=== PATIENT | male | born 1960 | race Caucasian/White ===

== ENCOUNTER 2021-02-16 11:52 | Emergency (ER) | payer OTHER ==
[~2021-02-16 11:52] MED LIST: AUGMENTIN 875-1 EACH PO; AZITHROMYCIN250 MG PO; BACLOFEN 10MG T10 MG PO; BACTRIM DS TAB1 EACH PO; CLARITIN10 MG PO; DALIRESP500 MCG PO; DUONEB 2.5-0.5M1 AMP INH; DUONEB 2.5-0.5M1 AMP NEB; GABAPENTIN600 MG PO; LEVAQUIN750 MG PO; LEXAPRO 10MG TA10 MG PO; NEBULIZER UNIT NEB; NEURONTIN300 MG PO; NEXIUM40 MG PO; NICOTINE PATCH1 EACH TOP; NORCO 5/3251 EACH PO; PERCOCET 5-3251 EACH PO; PREDNISONE 20MG20 MG PO; PROAIR HFA8.5 GM INH; PROTONIX 40MG T40 MG PO; ROBAXIN750 MG PO; SINGULAIR10 MG PO; SPIRIVA 18MCG18 MCG INH; SYMBICORT 80-10.2 GM INH; ULTRAM50 MG PO; VENTOLIN (2.5 MG/3 M INH; VENTOLIN HFA IN18 GM INH; VERAPAMIL ER180 M1 PO; VERAPAMIL ER180 MG PO; VIBRAMYCIN100 MG PO; WELLBUTRIN SR150 MG PO; ZPAK PO; ZYVOX600 MG PO
[2021-02-16 17:19] LABS: EOSINOPHIL 1.2 % (0-5); HCT 46.1 % (42.0-52.0); HGB 14.9 g/dl (13.2-18.0); LYMPHOCYTE 22.8 % (15-48); MCH 29.2 pg (25.0-31.0); MCHC 32.3 g/dL (32.0-36.0); MCV 90.2 fL (78.0-100.0); MONOCYTE 9.4 % (0-12); MPV 9.5 fL (6.0-9.5); NEUTROPHIL 65.3 % (41-80); NRBC 0; PLT 342 K/uL (150-400); RBC 5.11 M/uL (4.70-6.00); RDW 14.4 % (11.5-14.0); WBC 7.2 K/uL (4.0-10.5)
[2021-02-16 17:34] LABS: BILIRUBIN NEGATIVE (NEGATIVE); BLOOD NEGATIVE Ery/uL (NEGATIVE); CLARITY CLEAR (CLEAR); COLOR YELLOW (YELLOW); GLUCOSE (U) NORMAL (NORMAL); LEUKOCYTES NEGATIVE Leu/uL (NEGATIVE); NITRITE NEGATIVE (NEGATIVE); PROTEIN NEGATIVE (NEGATIVE); SPECIFIC GRAVITY >=1.030 (1.001-1.030); UROBILINOGEN 0.2 mg/dL (0.2-1.0); pH 5.5 (5.0-9.0)
[2021-02-16 17:39] LABS: BUN/CREAT RATIO (CALC) 15.6 RATIO; CREATININE 0.96 mg/dL (0.67-1.17); POTASSIUM 4.4 mmol/L (3.5-5.1)
[2021-02-16] MEDS ORDERED: BENTYL10 MG PO (20:53)
== END 2021-02-16 21:24 | disposition home or self-care (01) ==
LOC: FER 11:52
PROVIDERS: Nurse Practitioner Family
DX: K59.00 Constipation, unspecified (principal); J44.9 Chronic obstructive pulmonary disease, unspecified
CPT/HCPCS: 36415; 80048; 81003; 85025; 94640; 94664; J1885; J2270; J2405; Q9967

== ENCOUNTER 2021-02-21 11:28 | Emergency (ER) | payer OTHER ==
[~2021-02-21 11:28] MED LIST changes: +BENTYL10 MG PO
[2021-02-21 13:41] LABS: BASOPHIL 0.6 % (0-2); EOSINOPHIL 1.6 % (0-5); HCT 43.3 % (42.0-52.0); HGB 14.5 g/dl (13.2-18.0); LYMPHOCYTE 30.8 % (15-48); MCH 29.7 pg (25.0-31.0); MCHC 33.5 g/dL (32.0-36.0); MCV 88.7 fL (78.0-100.0); MONOCYTE 11.9 % (0-12); MPV 9.3 fL (6.0-9.5); NEUTROPHIL 54.8 % (41-80); NRBC 0; PLT 364 K/uL (150-400); RBC 4.88 M/uL (4.70-6.00); RDW 14.6 % (11.5-14.0); WBC 6.9 K/uL (4.0-10.5)
[2021-02-21 14:12] LABS: ALBUMIN 3.9 g/dL (3.4-5.0); ALKALINE PHOSHATASE 76 U/L (46-116); ALT 34 U/L (16-63); AST 22 U/L (15-37); BILIRUBIN - TOTAL 0.5 mg/dL (0.2-1.0); BUN 10 mg/dL (7-18); BUN/CREAT RATIO (CALC) 9.5 RATIO; C-REACTIVE PROTEIN < 0.20 mg/dL (<=0.90); CHLORIDE 106 mmol/L (98-107); CO2 (BICARBONATE) 22 mmol/L (21-32); CREATININE 1.05 mg/dL (0.67-1.17); GLUCOSE 87 mg/dL (74-106); LIPASE 116 U/L (73-393); POTASSIUM 3.9 mmol/L (3.5-5.1); TOTAL PROTEIN 6.9 g/dL (6.4-8.2)
[2021-02-21 14:29] LABS: BILIRUBIN NEGATIVE (NEGATIVE); BLOOD NEGATIVE Ery/uL (NEGATIVE); CLARITY CLEAR (CLEAR); COLOR YELLOW (YELLOW); GLUCOSE (U) NORMAL (NORMAL); LEUKOCYTES NEGATIVE Leu/uL (NEGATIVE); NITRITE NEGATIVE (NEGATIVE); PROTEIN NEGATIVE (NEGATIVE); SPECIFIC GRAVITY >=1.030 (1.001-1.030); UROBILINOGEN 0.2 mg/dL (0.2-1.0)
== END 2021-02-21 16:33 | disposition home or self-care (01) ==
LOC: FER 11:28
PROVIDERS: Internal Medicine
DX: K59.00 Constipation, unspecified (principal); J43.9 Emphysema, unspecified
CPT/HCPCS: 36415; 74022; 80053; 81003; 83690; 85025; 86140

== ENCOUNTER 2021-11-09 15:57 | Emergency (ER) | payer OTHER ==
[~2021-11-09 15:57] MED LIST changes: +HYDROCODON-ACE1 EAC2 PO; +MEDROL 4MG DOSEP4 MG PO
[2021-11-09 16:20] LABS: BASOPHIL 0.4 % (0-2); EOSINOPHIL 0.5 % (0-5); HCT 43.7 % (42.0-52.0); HGB 14.7 g/dl (13.2-18.0); LYMPHOCYTE 10.2 % (15-48); MCH 31.3 pg (25.0-31.0); MCHC 33.6 g/dL (32.0-36.0); MONOCYTE 7.9 % (0-12); MPV 9.7 fL (6.0-9.5); NRBC 0; PLT 284 K/uL (150-400); WBC 12.5 K/uL (4.0-10.5)
[2021-11-09 16:35] LABS: BUN/CREAT RATIO (CALC) 14.9 RATIO; CREATININE 1.01 mg/dL (0.67-1.17); POTASSIUM 4.1 mmol/L (3.5-5.1)
[2021-11-09] MEDS ORDERED: PERCOCET 5-3251 EACH PO (18:43)
[2021-11-12] MEDS ORDERED: HYDROCODON-ACE1 EAC2 PO (17:53)
[2021-11-12] MEDS ORDERED: OXYCODON-ACETA1 EAC1 PO (17:56)
[2021-11-17] MEDS ORDERED: OXYCODON-ACETA1 EAC1 PO (16:46)
[2021-11-17] MEDS ORDERED: TIZANIDINE HCL4 MG PO (16:49)
== END 2021-11-09 21:17 | disposition home or self-care (01) ==
LOC: FER 15:57
PROVIDERS: Emergency Medicine
DX: S32.020K Wedge compression fracture of second lumbar vertebra, subsequent encounter for fracture with nonunion (principal); S32.591A Other specified fracture of right pubis, initial encounter for closed fracture; M25.471 Effusion, right ankle; J44.9 Chronic obstructive pulmonary disease, unspecified; Z98.890 Other specified postprocedural states; Z28.311 Partially vaccinated for COVID-19; W22.8XXA Striking against or struck by other objects, initial encounter; Y92.009 Unspecified place in unspecified non-institutional (private) residence as the place of occurrence of the external cause
CPT/HCPCS: 36415; 70450; 72131; 73610; 80048; 85025; J1170; J2270; J2405; J3010; Q9967